=== PATIENT | female | born 1980 | race Caucasian/White ===

== ENCOUNTER 2021-06-03 01:21 | Emergency (ER) | payer BC ==
[2021-06-03] MEDS ORDERED: Sodium Chloride 0.9% 1,000 ML IV ONE (01:37)
[2021-06-03] MEDS ORDERED: Haloperidol Lactate 5 MG/ML SDV IVPUSH ONE (01:37)
[2021-06-03] MEDS ORDERED: Sodium Chloride 0.9% 10 ML Syringe FLUSH PRN (01:37)
--- NOTE | 2021-06-03 01:39 | EDM.PDOC ---
ED HPI GENERAL MEDICAL PROBLEM - General Chief Complaint: Abdominal Pain Stated Complaint: FEELS LIKE HAVE TO THROW UP BUT WONT,HAD A CT SCAN Time Seen by Provider: 06/03/21 01:37 Source of Information: Reports: Patient History Limitations: Reports: No Limitations - History of Present Illness INITIAL COMMENTS - FREE TEXT/NARRATIVE: Patient is a unfortunate 40-year-old female who presents emerged part today with complaint of epigastric abdominal pain. The patient reports that she started having the pain 3 days ago was seen at the clinic and was sent to the emergency department that time for further evaluation reports that her blood work and CT scan done at that time showed no acute process. She reports that since that time she is continued to have epigastric abdominal pain however it has been tolerable up until it awoke her from sleep about midnight tonight which caused her to seek care in the emergency department for further evaluation. She has had some nausea she reports she feels like she needs to vomit but is unable to do so. The patient denies any fever no chills no chest pain no shortness of breath she has had no back pain no diarrhea reports her last bowel movement was yesterday and it was "normal". Abdominal Pain Score (Numeric/FACES): 10 - Related Data Allergies Allergy/AdvReac Type Severity Reaction Status Date / Time hydrocodone Allergy Nausea and Verified 06/03/21 01:35 Vomiting morphine Allergy Hives Verified 06/03/21 01:35 Home Meds: Home Meds Dicyclomine [Bentyl] 1 tab PO Q6HR PRN 06/03/21 [History] oxyCODONE HCl/Acetaminophen [Percocet 5-325 mg Tablet] 1 tab PO Q6HR 06/03/21 [History] Social & Family History - Tobacco Use Tobacco Use Status *Q: Never Tobacco User - Caffeine Use Caffeine Use: Reports: Coffee, Soda, Tea, Other - Recreational Drug Use Recreational Drug Use: No ED ROS GENERAL - Review of Systems Review Of Systems: See Below Constitutional: Denies: Fever, Chills GI/Abdominal: Reports: Abdominal Pain, Nausea. Denies: Hematemesis, Hematochezia, Melena, Vomiting ED EXAM, GI/ABD - Physical Exam Exam: See Below Exam Limited By: No Limitations General Appearance: Alert, WD/WN, Moderate Distress Head: Atraumatic, Normocephalic Neck: Normal Inspection, Supple, Non-Tender, Full Range of Motion Respiratory/Chest: No Respiratory Distress, Lungs Clear, Normal Breath Sounds, No Accessory Muscle Use, Chest Non-Tender Cardiovascular: Normal Peripheral Pulses, Regular Rate, Rhythm, No Edema, No Gallop, No JVD, No Murmur, No Rub GI/Abdominal Exam: Normal Bowel Sounds, Soft, Tender (And epigastric tenderness, negative Romano sign) Extremities: Normal Inspection, Normal Range of Motion, Non-Tender, Normal Capillary Refill, No Pedal Edema Neurological: Alert, Oriented, CN II-XII Intact, Normal Cognition, Normal Gait, Normal Reflexes, No Motor/Sensory Deficits Skin Exam: Warm, Dry, Intact, Normal Color, No Rash ED ABDOMINAL/GI PROCEDURES - Ultrasound Ultrasound: Normal (Bedside ultrasound by me, no gallstones, no pericolic fluid, no thickening of the gallbladder wall, gallbladder is contracted at this time) #1 Interpretation EKG Date: 06/03/21 Time: 02:04 Rhythm: NSR Xenia: Normal P-Wave: Present QRS: Normal ST-T: Normal QT: Normal (Minor artifact, normal sinus rhythm, no acute ischemic changes) Course - Vital Signs Text/Narrative:: Patient reports pain was completely relieved with Haldol, the patient wishes to sign out AGAINST MEDICAL ADVICE does not want to wait for her work-up to return. The patient did have a bedside ultrasound by me which showed a contracted gallbladder no gallbladder wall thickening and no pericholecystic fluid, there is a chance that the patient may still have cholecystitis or a calculus cholecystitis, this is discussed with patient in great length encourage the patient follow-up outpatient with her PCP and have further studies done on her gallbladder the patient is of sound mind and wishes to leave AGAINST MEDICAL ADVICE Last Recorded V/S: Last Vital Signs Temp 96.2 F L 06/03/21 01:34 Pulse 68 06/03/21 01:34 Resp 16 06/03/21 01:34 BP 136/83 06/03/21 01:34 Pulse Ox 99 06/03/21 01:34 - Orders/Labs/Meds Orders: Active Orders 24 hr Category Date Time Status COMPREHENSIVE METABOLIC PN,CMP [CHEM] Stat Lab 06/03/21 01:53 Received DRUG SCREEN, URINE [URCHEM] Stat Lab 06/03/21 01:36 Ordered LIPASE [CHEM] Stat Lab 06/03/21 01:53 Received TROPONIN I HIGH SENSITIVITY [CHEM] Stat Lab 06/03/21 01:53 Received UA RFX STEPHANIE AND CULT IF INDIC [URIN] Stat Lab 06/03/21 01:36 Ordered Sodium Chloride 0.9% [Normal Saline] 1,000 ml Med 06/03/21 01:37 Active IV .BOLUS Sodium Chloride 0.9% [Saline Flush] Med 06/03/21 01:37 Active 10 ml FLUSH ASDIRECTED PRN Saline Lock Insert [OM.PC] Stat Oth 06/03/21 01:36 Ordered Medication Orders Sodium Chloride (Normal Saline) 1,000 mls @ 1,000 mls/hr IV .BOLUS ONE Stop: 06/03/21 02:36 Last Admin: 06/03/21 01:57 Dose: 1,000 mls/hr Documented by: SARAY Sodium Chloride (Sodium Chloride 0.9% 10 Ml Syringe) 10 ml FLUSH ASDIRECTED PRN PRN Reason: Keep Vein Open Last Admin: 06/03/21 01:57 Dose: 10 ml Documented by: SARAY Labs: Laboratory Tests 06/03/21 Range/Units 01:53 WBC 11.4 H (5.0-10.0) 10^3/uL RBC 4.57 (4.2-5.4) 10^6/uL Hgb 13.5 (12.0-16.0) g/dL Hct 40.1 (37.0-47.0) % MCV 87.7 (80-100) fL MCH 29.5 (27.0-34.0) pg MCHC 33.7 (33.0-35.0) g/dL Plt Count 286 (150-450) 10^3/uL Neut % (Auto) 52.1 (42.2-75.2) % Lymph % (Auto) 38.7 (20.5-50.1) % [place] % (Auto) 6.5 (2-8) % Eos % (Auto) 2.4 (1.0-3.0) % Baso % (Auto) 0.3 (0.0-1.0) % Meds: Medications Generic Name Dose Route Start Last Admin Trade Name Freq PRN Reason Stop Dose Admin Sodium Chloride 1,000 mls @ 1,000 mls/hr 06/03/21 01:37 06/03/21 01:57 Normal Saline IV 06/03/21 02:36 1,000 mls/hr .BOLUS ONE Administration Sodium Chloride 10 ml 06/03/21 01:37 06/03/21 01:57 Sodium Chloride 0.9% 10 Ml Syringe FLUSH 10 ml ASDIRECTED PRN Administration Keep Vein Open Discontinued Medications Generic Name Dose Route Start Last Admin Trade Name Freq PRN Reason Stop Dose Admin Haloperidol Lactate 5 mg 06/03/21 01:37 06/03/21 01:57 Haloperidol Lactate 5 Mg/Ml Sdv IVPUSH 06/03/21 01:38 5 mg ONETIME ONE Administration Departure - Departure Time of Disposition: 02:13 Disposition: Against Medical Advice 07 Condition: Fair Clinical Impression: Abdominal pain Qualifiers: Abdominal location: epigastric Qualified Code(s): R10.13 - Epigastric pain - Discharge Information Forms: ED Department Discharge, Refusal of Care AMA Sepsis Event Note (ED) - Evaluation Sepsis Screening Result: No Definite Risk - Focused Exam Vital Signs: Vital Signs Temp Pulse Resp BP Pulse Ox 06/03/21 01:34 96.2 F L 68 16 136/83 99 - My Orders Last 24 Hours: My Active Orders 06/03/21 01:36 DRUG SCREEN, URINE [URCHEM] Stat UA RFX STEPHANIE AND CULT IF INDIC [URIN] Stat Saline Lock Insert [OM.PC] Stat 06/03/21 01:37 Sodium Chloride 0.9% [Normal Saline] 1,000 ml IV .BOLUS Sodium Chloride 0.9% [Saline Flush] 10 ml FLUSH ASDIRECTED PRN 06/03/21 01:53 COMPREHENSIVE METABOLIC PN,CMP [CHEM] Stat LIPASE [CHEM] Stat TROPONIN I HIGH SENSITIVITY [CHEM] Stat - Assessment/Plan Last 24 Hours: My Active Orders 06/03/21 01:36 DRUG SCREEN, URINE [URCHEM] Stat UA RFX STEPHANIE AND CULT IF INDIC [URIN] Stat Saline Lock Insert [OM.PC] Stat 06/03/21 01:37 Sodium Chloride 0.9% [Normal Saline] 1,000 ml IV .BOLUS Sodium Chloride 0.9% [Saline Flush] 10 ml FLUSH ASDIRECTED PRN 06/03/21 01:53 COMPREHENSIVE METABOLIC PN,CMP [CHEM] Stat LIPASE [CHEM] Stat TROPONIN I HIGH SENSITIVITY [CHEM] Stat
[2021-06-03 02:19] LABS: ANION GAP 12.9 mEq/L (7-13); CHLORIDE,CL 103 mmol/L (98-107); SODIUM,NA 142 mmol/L (136-145)
== END 2021-06-03 02:21 | disposition left against medical advice (07) ==
LOC: DL.ED 01:21
DX: R10.13 Epigastric pain (principal); R11.0 Nausea; Z88.5 Allergy status to narcotic agent
CPT/HCPCS: 36415; 80053; 83690; 84484; 85025; 93005; 93010; 96374; 99283; 99284-25; J1630; J7030